=== PATIENT | male | born 1945 | race Caucasian/White ===

== ENCOUNTER → 2018-03-14 | Outpatient (CLI) | payer MEDICARE | LOC: WOUNDCARE 08:52 | PROVIDERS: ATTEND Nurse Practitioner | DX: L97.512 Non-pressure chronic ulcer of other part of right foot with fat layer exposed (principal) | CPT/HCPCS: 11042 ==

== ENCOUNTER → 2018-04-04 | Outpatient (CLI) | payer MEDICARE | LOC: WOUNDCARE 08:18 | PROVIDERS: ATTEND Nurse Practitioner | DX: L97.512 Non-pressure chronic ulcer of other part of right foot with fat layer exposed (principal) | CPT/HCPCS: 11042; 87070; 87075; 87077; 87101; 87106; 87186; 87205 ==

== ENCOUNTER → 2018-04-11 | Outpatient (CLI) | payer MEDICARE | LOC: WOUNDCARE 08:16 | PROVIDERS: ATTEND Nurse Practitioner | DX: L97.512 Non-pressure chronic ulcer of other part of right foot with fat layer exposed (principal) | CPT/HCPCS: 15275 ==

== ENCOUNTER → 2018-04-18 | Outpatient (CLI) | payer MEDICARE | LOC: WOUNDCARE 08:22 | PROVIDERS: ATTEND Nurse Practitioner | DX: L97.512 Non-pressure chronic ulcer of other part of right foot with fat layer exposed (principal) | CPT/HCPCS: 99212 ==

== ENCOUNTER 2020-04-27 17:53 | Inpatient (IN) | payer MEDICARE ==
[~2020-04-27] VITALS: Ht 180.3 cm; Wt 74.7 kg
[2020-04-27] MEDS ORDERED: MELATONIN 3 MG TABLET PO PRN (18:00)
[2020-04-27] MEDS ORDERED: ONDANSETRON 4 MG/2 ML (SDV) Z0FRAN IV PRN (18:00)
[2020-04-27] MEDS ORDERED: ANTACID SUSP 30 ML UDC (MYLANTA) PO PRN (18:00)
[2020-04-27] MEDS ORDERED: polyethylene glycoL POWDER 17 GM (MIRALAX) PACK PO PRN (18:00)
[2020-04-27] MEDS ORDERED: ACETAMINOPHEN 325 MG TABLET PO PRN (18:00)
[2020-04-27] MEDS ORDERED: ENOXAPARIN 30 MG/0.3 ML (LOVENOX) SYR SC SCH (18:00)
[2020-04-27 18:47] VITALS: BP 121/81
[2020-04-27] MEDS ORDERED: NS IV 1000 ML 1,000 ML ONE (19:53)
[2020-04-27] MEDS ORDERED: ENOXAPARIN 30 MG/0.3 ML (LOVENOX) SYR ONE (19:53)
[2020-04-27] MEDS ORDERED: WATER (STERILE) FOR INJECTION 10 ML ONE (19:58)
[2020-04-27] MEDS ORDERED: cefTRIAXone 1,000 MG IV (ROCEPHIN) VIAL ONE (19:58)
[2020-04-27] MEDS: cefTRIAXone FOR IV USE 1,000 MG in WATER (STERILE) FOR INJECTION 10 ML IV SCH (20:22)
[2020-04-27] MEDS: NS IV 1000 ML 1,000 ML IV SCH (20:22)
[2020-04-27 20:29] VITALS: BP 121/81
[2020-04-27 23:27] VITALS: BP 121/81
[2020-04-28] VITALS (12 sets, daily range): BP systolic 103–142; BP diastolic 49–98
[2020-04-28] MEDS: NS IV 1000 ML 1,000 ML IV SCH ×6 (01:06→16:31)
[2020-04-28 01:14] LABS: HEMOGLOBIN 17.6 g/dL (13.3-17.7); MEAN PLATELET VOLUME 10.3 fL (9.0-12.2)
[2020-04-28 01:16] LABS: WHITE BLOOD COUNT 32.1 10^3/uL (4.3-11.0)
[2020-04-28 01:25] LABS: ALBUMIN 3.6 GM/DL (3.2-4.5)
[2020-04-28 01:26] LABS: CALCIUM 8.3 MG/DL (8.5-10.1)
[2020-04-28 01:28] LABS: TOTAL PROTEIN 6.5 GM/DL (6.4-8.2)
[2020-04-28 01:29] LABS: BILIRUBIN,TOTAL 0.8 MG/DL (0.1-1.0)
[2020-04-28 01:31] LABS: CREATININE SERUM 3.38 MG/DL (0.60-1.30)
--- NOTE | 2020-04-28 07:02 | NUR ---
PATIENT IS HARD OF HEARING, UNABLE TO OBTAIN ANSWERS TO ADMISSION QUESTIONS. PATIENT IS ALSO CONFUSED.
--- NOTE | 2020-04-28 08:44 | Diagnostic Imaging Report ---
EXAMINATION: Portable erect AP chest at 8:25 AM. INDICATION: Fever. COMPARISON: There are no prior studies available for comparison. FINDINGS: The heart size is within normal limits. The descending thoracic aorta is somewhat tortuous. The lungs are clear. There is no evidence for failure, pneumonia, or pleural effusion. The mediastinum is not widened. The osseous structures are intact. IMPRESSION: There is no evidence for an acute cardiopulmonary abnormality. Dictated by: Dictated on workstation # [id number]
--- NOTE | 2020-04-28 10:47 | Physical Therapy Progress Note ---
Therapy Progress Note PT consulted with physician. Patient admitted early this a.m. and is very confused and unable to follow simple direction. Physician reports to begin in a.m. Per RN, patient has multiple left side wounds from being on the floor for an unknown amount of time. PT to initiate treatment in a.m. ANGEL ELLIS PT Apr 28, 2020 10:47
--- NOTE | 2020-04-28 11:01 | Occ Therapy Progress Note ---
Therapy Progress Note OT talked with PT who reports physician requests therapy to begin tomorrow. Pt was admitted early this AM and is confused and unable to follow simple directions. OT to initiate tx tomorrow. LAMONTE FABIAN OT Apr 28, 2020 11:01
[2020-04-28 11:24] LABS: CLARITY,URINE CLOUDY; COLOR,URINE YELLOW; GLUCOSE, URINE (UA) NEGATIVE (NEGATIVE); KETONES,URINE TRACE (NEGATIVE); LEUKOCYTE ESTERASE ,URINE TRACE (NEGATIVE); NITRITE,URINE NEGATIVE (NEGATIVE); PH,URINE 5.5 (5-9); PROTEIN,URINE 2+ (NEGATIVE)
--- NOTE | 2020-04-28 11:25 | Consultation-Cardiology ---
HPI-Cardiology Cardiology Consultation Date of Consultation 04/28/20 Date of Admission Time Seen by Provider: 11:20 Indication: coronary artery disease HPI 75 years old gentleman who was found on the floor, transferred from [facility], unable to provide a full history. He is lethargic in bed. Noted to have acute renal failure, rhabdomyolysis, leukocytosis, urinary tract infections and mild elevation troponin level. He denied any chest pain, no active pain, having some bruising on his face. Does not recall falling or losing consciousness. Home Medications & Allergies Allergies: Coded Allergies: No Known Allergies (Verified Allergy, Unknown, 04/27/20) Home Medication List Reviewed: Yes PPB-Cgchzr-Exkgsa Hx Patient Social History Alcohol Use: Regular Use Recreational Drug Use: No Recent Foreign Travel: No Recent Infectious Disease Expo: No Physical Abuse Screen: No Sexual Abuse: No Past Medical History Discussed below Family Medical History Family Medical Hx Unable to provide family history Review of Systems-General Review of Systems Constitutional: malaise, weakness EENTM: see HPI Respiratory: see HPI Cardiovascular: see HPI Gastrointestinal: no symptoms reported, see HPI Genitourinary: no symptoms reported, see HPI Musculoskeletal: no symptoms reported, see HPI Skin: no symptoms reported, see HPI Psychiatric/Neurological: No Symptoms Reported, See HPI Reviewed Test Results Reviewed Test Results Lab Laboratory Tests Test 04/28/20 01:00 04/28/20 04:08 04/28/20 06:18 04/28/20 09:04 Range/Units White Blood Count 32.1 *H 4.3-11.0 10^3/uL Red Blood Count 5.78 H 4.30-5.52 10^6/uL Hemoglobin 17.6 13.3-17.7 g/dL Hematocrit 53 40-54 % Mean Corpuscular Volume 92 80-99 fL Mean Corpuscular Hemoglobin 30 25-34 pg Mean Corpuscular Hemoglobin Concent 33 32-36 g/dL Red Cell Distribution Width 13.2 10.0-14.5 % Platelet Count 214 130-400 10^3/uL Mean Platelet Volume 10.3 9.0-12.2 fL Sodium Level 140 135-145 MMOL/L Potassium Level 5.0 3.6-5.0 MMOL/L Chloride Level 111 H 98-107 MMOL/L Carbon Dioxide Level 13 L 21-32 MMOL/L Anion Gap 16 H 5-14 MMOL/L Blood Urea Nitrogen 41 H 7-18 MG/DL Creatinine 3.38 H 0.60-1.30 MG/DL Estimat Glomerular Filtration Rate 18 BUN/Creatinine Ratio 12 Glucose Level 171 H 70-105 MG/DL Lactic Acid Level 2.24 *H 3.33 *H 2.52 *H 2.90 *H 0.50-2.00 MMOL/L Calcium Level 8.3 L 8.5-10.1 MG/DL Corrected Calcium 8.6 8.5-10.1 MG/DL Total Bilirubin 0.8 0.1-1.0 MG/DL Aspartate Amino Transf (AST/SGOT) 492 H 5-34 U/L Alanine Aminotransferase (ALT/SGPT) 86 H 0-55 U/L Alkaline Phosphatase 52 40-136 U/L Total Creatine Kinase 251 H 30-200 U/L Troponin I 0.794 *H 0.634 *H <0.028 NG/ML Total Protein 6.5 6.4-8.2 GM/DL Albumin 3.6 3.2-4.5 GM/DL Test 04/28/20 10:07 Range/Units Physical Exam Physical Exam Vital Signs Vital Signs - First Documented 04/27/20 04/27/20 18:47 23:27 Temp 37.6 Pulse 122 Resp 16 B/P (MAP) 121/81 (94) Pulse Ox 97 O2 Delivery Room Air FiO2 21 Capillary Refill : Less Than 3 Seconds Height, Weight, BMI Height: '" Weight: lbs. oz. kg; 24.36 BMI Method: General Appearance: No Apparent Distress HEENT: PERRL/EOMI, TMs Normal Neck: Full Range of Motion, Normal Inspection Respiratory: Chest Non Tender, Lungs Clear, Normal Breath Sounds Cardiovascular: Regular Rate, Rhythm, No Edema, No Gallop Gastrointestinal: Normal Bowel Sounds, No Organomegaly Rectal: Deferred Back: Normal Inspection, No CVA Tenderness Extremity: Normal Inspection Neurologic/Psychiatric: Alert Skin: Normal Color Lymphatic: No Adenopathy A/P-Cardiology Admission Diagnosis Rhabdomyolysis Non-ST elevation myocardial infarctions Acute renal failure Acute liver failure Assessment/Plan Rhabdomyolysis, multiorgan failure. Receiving IV fluid at 150 mL per hour, continue to monitor Mild elevation in troponin level, non-ST elevation myocardial infarction, conservative management at this point due to renal failure Acute renal failure, receiving IV fluid. Continue to monitor renal function Metabolic acidosis, lactic acidosis, receiving IV fluid. Continue to monitor closely, I'll repeat metabolic profile today Acute hepatic injury, continue to monitor liver function Leukocytosis, questionable underlying sepsis, managed by primary care team Generalized weakness, lethargy, PT and OT started COVID status pending ANGEL TEIXEIRA MD Apr 28, 2020 11:25
[2020-04-28 11:37] LABS: BACTERIA,URINE FEW /HPF; BILIRUBIN,URINE 1+ (NEGATIVE)
[2020-04-28 11:38] LABS: AMORPHOUS SEDIMENT,UR RARE AMOR URATES /LPF; GRANULAR CASTS,URINE 0-2 /LPF; HYALINE CASTS, URINE 0-2 /LPF
[2020-04-28 12:00] LABS: BASOPHILS # (AUTO) 0.1 10^3/uL (0.0-0.1); BASOPHILS % (AUTO) 0 % (0-10); EOSINOPHILS % (AUTO) 0 % (0-10); HEMATOCRIT 54 % (40-54); HEMOGLOBIN 17.5 g/dL (13.3-17.7); LYMPHOCYTES # (AUTO) 1.1 10^3/uL (1.0-4.0); LYMPHOCYTES % (AUTO) 4 % (12-44); MEAN CORPUSCULAR HEMOGLOBIN 31 pg (25-34); MEAN CORPUSCULAR HGB CONC 33 g/dL (32-36); MEAN CORPUSCULAR VOLUME 94 fL (80-99); MEAN PLATELET VOLUME 10.4 fL (9.0-12.2); MONOCYTES # (AUTO) 2.6 10^3/uL (0.0-1.0); MONOCYTES % (AUTO) 9 % (0-12); NEUTROPHILS # (AUTO) 25.2 10^3/uL (1.8-7.8); NEUTROPHILS % (AUTO) 87 % (42-75); PLATELET COUNT 181 10^3/uL (130-400); WHITE BLOOD COUNT 29.1 10^3/uL (4.3-11.0)
[2020-04-28 12:03] LABS: ALBUMIN 3.2 GM/DL (3.2-4.5); POTASSIUM 5.3 MMOL/L (3.6-5.0)
[2020-04-28 12:06] LABS: TOTAL PROTEIN 6.1 GM/DL (6.4-8.2)
[2020-04-28 12:07] LABS: BILIRUBIN,TOTAL 0.6 MG/DL (0.1-1.0)
[2020-04-28 12:09] LABS: CREATININE SERUM 4.33 MG/DL (0.60-1.30)
[2020-04-28 12:35] LABS: BAND NEUTROPHILS 6 %; BASOPHILS % (MANUAL) 0 %; EOSINOPHILS % (MANUAL) 0 %; LYMPHOCYTES % (MANUAL) 5 %; MONOCYTES % (MANUAL) 3 %; NEUTROPHILS % (MANUAL) 86 %
[2020-04-28 12:36] LABS: RBC MORPH NORMAL
[2020-04-28] MEDS ORDERED: METO-333 PO (13:05)
[2020-04-28] MEDS ORDERED: CARB1TAB41 PO (13:05)
[2020-04-28] MEDS ORDERED: AMLO5TAB9 PO (13:06)
[2020-04-28] MEDS ORDERED: ROPI0.5T4 PO (13:07)
--- NOTE | 2020-04-28 13:09 | NUR ---
Could not speak with patient. Hard of hearing and confused. Called [facility] in [place]. Took medication list from [facility]. Ropinirole 0.5mg filled 04-01-20 2 weeks take 1 tablet PO TID 2 weeks take 2 tablet PO TID Last filled Tamsulosin 12/03/19 Qty 90 days
--- NOTE | 2020-04-28 13:23 | NUR ---
CM/SS attempted to visit with patient for social service consult. Patient is a person under investigations for Covid-19. Awaiting result from [facility]. CM/SS spoke with patient's primary care nurse to get an update. She states the physician will contact family to discuss care plan. CM/SS will follow with physician and assist with care plan for discharge.
[2020-04-28] MEDS ORDERED: SODIUM BICARBONATE 650 MG TABLET (NON-FORMULARY) PO NR (14:00)
--- NOTE | 2020-04-28 14:08 | History & Physical-Hospitalist ---
History of Present Illness HPI/Chief Complaint Adriano Kearney is a 75-year-old male with past medical history of hypertension, Parkinson's, restless leg syndrome, who presented to [facility] after being found down at home. He is a poor historian and unable to provide any meaningful history. He denies any complaints of the time my examination. He denies any pain. He denies any trouble breathing. He is oriented to self and place, but disoriented to city, year, and president. I spoke with his daughter, Kayley, and she states that he had been living at home by himself. We discussed his worsening kidney function and she states that he would want dialysis. She states that if he needs to be transferred that they would prefer [facility]. Source: patient, family Exam Limitations: clinical condition Date Seen 04/28/20 Time Seen by a Provider: 09:50 Attending Physician Milagros Bates MD PCP Referring Physician Date of Admission Apr 27, 2020 at 18:50 Home Medications & Allergies Home Medications Reviewed patient Home Medication Reconciliation performed by pharmacy medication reconciliations computer technician and/or nursing. Patients Allergies have been reviewed. Allergies Allergies Coded Allergies No Known Allergies (Verified Allergy, Unknown, 04/27/20) Past Phferjd-Xaxjgm-Gghotm Hx Past Med/Social Hx: Reviewed Nursing Past Med/Soc Hx Patient Social History Alcohol Use: Regular Use Alcohol Beverage of Choice: Beer Recreational Drug Use: No Physical Abuse Screen: No Sexual Abuse: No Recent Foreign Travel: No Contact w/other who traveled: No Recent Infectious Disease Expo: No Review of Systems ROS-Unable to Obtain: poor historian Constitutional: see HPI Physical Exam Physical Exam Vital Signs Vital Signs - First Documented 04/27/20 04/27/20 18:47 23:27 Temp 37.6 Pulse 122 Resp 16 B/P (MAP) 121/81 (94) Pulse Ox 97 O2 Delivery Room Air FiO2 21 Capillary Refill : Less Than 3 Seconds Height, Weight, BMI Height: '" Weight: lbs. oz. kg; 24.36 BMI Method: General Appearance: No Apparent Distress, Chronically ill HEENT: Moist Mucous Membranes, Other (left eye swollen) Respiratory: No Respiratory Distress, Decreased Breath Sounds, Wheezing Cardiovascular: No Murmur, Tachycardia Gastrointestinal: Normal Bowel Sounds, Non Tender, Soft Extremity: Normal Inspection, Non Tender, No Pedal Edema Neurologic/Psychiatric: Alert, Depressed Affect, Disoriented Skin: Warm/Dry, Pallor Results Results/Procedures Labs Laboratory Tests 04/28/20 01:00 04/28/20 11:04 Patient resulted labs reviewed. Imaging: Reviewed Imaging Report Assessment/Plan Admission Diagnosis severe sepsis due to urinary tract infection Admission Status: Inpatient Order (span 2 midnights) Reason for Inpatient Admission: UTI requiring IV antibiotics Assessment and Plan Severe sepsis Urinary tract infection Lactic acidosis Acute kidney injury Likely acute tubular necrosis Non-ST elevation KS, likely type II Ground-level fall Infectious workup started at [facility] UA indicative of likely UTI, culture pending Rocephin for UTI CK mildly elevated lactic acid elevated Creatinine 3.3, increased to 4.3 this morning IV fluids urine output low troponin elevated, stable Cardiology consulted, appreciate assistance begin transfer process for nephrology evaluation and likely hemodialysis DVT prophylaxis: Lovenox Diagnosis/Problems Diagnosis/Problems (1) Severe sepsis with acute organ dysfunction Status: Acute (2) Urinary tract infection Status: Acute (3) Lactic acidosis Status: Acute (4) Acute kidney injury Status: Acute (5) NSTEMI (non-ST elevation myocardial infarction) Status: Acute (6) Fall from ground level Status: Acute (7) Elevated LFTs Status: Acute (8) Elevated CK Status: Acute BORIS ALVAREZ MD Apr 28, 2020 14:08
[2020-04-28] MEDS ORDERED: dilTIAZem DRIP PRE-MIX 125 ML IV ONE (14:18)
[2020-04-28] MEDS ORDERED: dilTIAZem DRIP PRE-MIX 125 ML IV SCH (14:45)
[2020-04-28] MEDS ORDERED: ENOXAPARIN 100 MG/1 ML (LOVENOX) SYR SC SCH (15:45)
[2020-04-28] MEDS ORDERED: AMIODARONE INJECTION 150 MG in D5W 100 ML IVPB 100 ML IV NR (15:45)
[2020-04-28] MEDS ORDERED: AMIODARONE INJECTION 450 MG in D5W IV SOLUTION (EXCEL) 250 ML IV SCH (15:45)
[2020-04-28] MEDS ORDERED: WATER (STERILE) FOR INJECTION 20 ML ONE (15:48)
[2020-04-28] MEDS ORDERED: cefTRIAXone 1,000 MG IV (ROCEPHIN) VIAL ONE (15:48)
[2020-04-28] MEDS ORDERED: ENOXAPARIN 80 MG/0.8 ML (LOVENOX) SYR SC SCH (16:00)
[2020-04-28] MEDS: SODIUM BICARBONATE 650 MG TABLET (NON-FORMULARY) PO SCH ×2 (16:27→20:18)
[2020-04-28] MEDS: cefTRIAXone FOR IV USE 1,000 MG in WATER (STERILE) FOR INJECTION 10 ML IV SCH (16:27)
[2020-04-28 17:00] LABS: CALCIUM 7.9 MG/DL (8.5-10.1); CREATININE SERUM 4.69 MG/DL (0.60-1.30)
== END 2020-04-28 20:43 | disposition short-term general hospital (02) | DRG 871 ==
LOC: CSD 18:50 → ICU 04-28 14:20
PROVIDERS: ADMIT Family Medicine; ATTEND Family Medicine
DX: A41.9 Sepsis, unspecified organism (principal); N17.0 Acute kidney failure with tubular necrosis; I21.A1 Myocardial infarction type 2; K72.00 Acute and subacute hepatic failure without coma; N39.0 Urinary tract infection, site not specified; M62.82 Rhabdomyolysis; E87.2 Acidosis; S00.93XA Contusion of unspecified part of head, initial encounter; I10 Essential (primary) hypertension; G20 Parkinson's disease; G25.81 Restless legs syndrome
CPT/HCPCS: 36415; 71045; 80048; 80053; 81000; 82550; 83605; 84484; 85007; 85027; 87088; 93005

== ENCOUNTER → 2020-05-30 | Outpatient (CLI) | payer OTHER, MEDICARE ==
[~2020-05-30] MED LIST: AMLO-250 PO; CARB1TAB41 PO; METO-333 PO; ROPI0.5T4 PO
== END ==
LOC: LABNPT 13:29
PROVIDERS: ATTEND Nurse Practitioner Family
DX: Z20.828 Contact with and (suspected) exposure to other viral communicable diseases (principal)
CPT/HCPCS: 87635

== ENCOUNTER → 2020-06-02 | Outpatient (CLI) | payer OTHER, MEDICARE ==
[2020-06-02 12:51] LABS: ABSOLUTE RETIC # 98 10e9/uL (24-90)
[2020-06-02 12:58] LABS: ANISOCYTOSIS SLIGHT; BAND NEUTROPHILS 0 %; BASOPHILS % (MANUAL) 0 %; EOSINOPHILS % (MANUAL) 1 %; POLYCHROMASIA SLIGHT
[2020-06-02 13:03] LABS: LYMPHOCYTES % (MANUAL) 7 %; MONOCYTES % (MANUAL) 5 %; NEUTROPHILS % (MANUAL) 87 %
== END ==
LOC: LABNPT 12:44
PROVIDERS: ATTEND Family Medicine
DX: Z01.89 Encounter for other specified special examinations (principal)
CPT/HCPCS: 85007; 85045

== ENCOUNTER → 2020-06-03 | Outpatient (CLI) | payer MEDICARE | LOC: GIR 09:27 | PROVIDERS: ATTEND Family Medicine | DX: Z01.89 Encounter for other specified special examinations (principal) | CPT/HCPCS: 84145 ==

== ENCOUNTER → 2020-08-04 | Outpatient (CLI) | payer OTHER, MEDICARE | LOC: GIR 16:55 | PROVIDERS: ATTEND Nurse Practitioner Family | DX: Z20.822 Contact with and (suspected) exposure to COVID-19 (principal) | CPT/HCPCS: 87635 ==